=== PATIENT | female | born 1980 | race Asian ===

== ENCOUNTER 2018-01-09 13:05 | Emergency (ER) | payer BC, SELFPAY ==
--- NOTE | 2018-01-09 13:42 | ER ---
Nurse's Notes [facility] Name: Sherron Mart Age: 37 yrs Sex: Female : 1980 Arrival Date: 01/09/2018 Time: 13:09 Bed 25 Private MD: Diagnosis: Acute lymphadenitis Presentation: 01/09 13:29 Presenting complaint: Patient states: fever and neck swelling started Friday. worse ch this morning. had outpatient ct performed that showed swelling in neck. Transition of care: patient was not received from another setting of care. Onset of symptoms was January 06, 2018. Risk Assessment: Do you want to hurt yourself or someone else? Patient reports no desire to harm self or others. Initial Sepsis Screen: Does the patient meet any 2 criteria? No. Patient's initial sepsis screen is negative. Does the patient have a suspected source of infection? No. Patient's initial sepsis screen is negative. Care prior to arrival: None. 13:29 Method Of Arrival: Ambulatory 13:29 Acuity: DOMO 3 ch Triage Assessment: 13:30 General: Appears in no apparent distress. comfortable, Behavior is calm, cooperative, ch appropriate for age. Pain: Complains of pain in left ear Pain currently is 5 out of 10 on a pain scale. Pain began suddenly. EENT: Oral mucosa is moist. pt has swelling to L side of neck, does not report SOB at this time. . Neuro: No deficits noted. Respiratory: No deficits noted. GI: No signs and/or symptoms were reported involving the gastrointestinal system. Derm: No signs and/or symptoms reported regarding the dermatologic system. 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 - Social history:: Smoking status: unknown. - Family history:: not pertinent. - Ebola Screening: : Patient negative for fever greater than or equal to 101.5 degrees Fahrenheit, and additional compatible Ebola Virus Disease symptoms Patient denies exposure to infectious person Patient denies travel to an Ebola-affected area in the 21 days before illness onset No symptoms or risks identified at this time. - Hospitalizations: : No recent hospitalization is reported. Screenin:58 Abuse screen: Denies threats or abuse. Denies injuries from another. Nutritional ch screening: No deficits noted. Tuberculosis screening: No symptoms or risk factors identified. Fall Risk None identified. Assessment: 13:58 General: Appears in no apparent distress. comfortable, Behavior is calm, cooperative, ch appropriate for age. Pain: Complains of pain in left sternocleidomastoid Pain currently is 6 out of 10 on a pain scale. Pain began suddenly. Neuro: No deficits noted. Neuro: Level of Consciousness is awake, alert, obeys commands, Oriented to person, place, time, situation, Reports headache. Cardiovascular: Heart tones S1 S2 present Capillary refill < 3 seconds in bilateral fingers toes. Respiratory: No deficits noted. GI: No signs and/or symptoms were reported involving the gastrointestinal system. : No signs and/or symptoms were reported regarding the genitourinary system. EENT: PT HAS SWELLING TO L SIDE OF NECK. Derm: Skin is pink, warm \T\ dry. Vital Signs: 13:30 BP 130 / 72; Pulse 90; Resp 18; Pulse Ox 99% on R/A; Pain 4/10; ch 13:58 BP 126 / 78; Pulse 81; Resp 15; Temp 99.2; Pulse Ox 99% on R/A; Pain 4/10; ch ED Course: 13:09 Patient arrived in ED. iw 13:10 Hood Panda MD is Attending Physician. rn 13:29 Ina Baron, [place] is Primary Nurse. ch 13:30 Triage completed. ch 13:30 Arm band placed on left wrist. Patient placed in an exam room, on a stretcher. EKG ch completed in triage. Results shown to MD. 13:58 Patient has correct armband on for positive identification. Bed in low position. Call light in reach. Adult w/ patient. 13:58 No provider procedures requiring assistance completed. IV discontinued, intact, ch bleeding controlled, No redness/swelling at site. Pressure dressing applied, PT HAD 22G IV TO L WRIST FROM CT. Administered Medications: 13:55 Drug: Zofran 4 mg Route: PO; ch 14:00 Follow up: Response: No adverse reaction Outcome: 13:58 Eloped from patient exam room, after seeing physician Time discovered patient gone: January 09, 2018 at 14:01 13:58 Condition: stable 13:58 Instructed on ERP REVIEWED HE WANTED TO TRANSFER PT TO [facility] FOR AN ENT EVALUATION AND ADMISSION. PT STATED SHE DIDN'T REALLY WANT TO BE TRANSFERRED VIA EMS, SHE COULD NOT AFFORD IT. ERP REVIEWED PT NEEDED TO BE EVALUATED BY ENT 14:03 Patient left the ED. Signatures: Ina Baron RN RN Lani Aly RN RN Hood Panda MD MD rn
--- NOTE | 2018-01-09 13:42 | EDPHYS ---
Physician Documentation [facility] Name: Sherron Mart Age: 37 yrs Sex: Female : 1980 Arrival Date: 01/09/2018 Time: 13:09 Bed 25 Private MD: ED Physician Hood Panda HPI: 01/09 13:21 This 37 yrs old Female presents to ER via Unassigned with complaints of Abnormal internal medicine specialist Results, Neck Swelling. 13:21 The patient or guardian complains of pain. The symptoms are located on the left neck. rn Onset: The symptoms/episode began/occurred 4. day(s) ago. Context: The problem was sustained at an unknown location. The pain does not radiate. Modifying factors: The symptoms are alleviated by nothing. the symptoms are aggravated by movement, pressure. Severity of symptoms: At their worst the symptoms were moderate, in the emergency department the symptoms are unchanged. The patient has not experienced similar symptoms in the past. Reports swelling to left neck that began a few days ago, got on augmentin yesterday, worsened today, got CT scan of neck, sent here by radiology for evaluation. NO trouble breathing or swallowing. . 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 - Social history:: Smoking status: unknown. - Family history:: not pertinent. - Ebola Screening: : Patient negative for fever greater than or equal to 101.5 degrees Fahrenheit, and additional compatible Ebola Virus Disease symptoms Patient denies exposure to infectious person Patient denies travel to an Ebola-affected area in the 21 days before illness onset No symptoms or risks identified at this time. - Hospitalizations: : No recent hospitalization is reported. ROS: 13:21 Constitutional: + fever Eyes: Negative for injury, pain, redness, and discharge, ENT: rn Negative for injury, pain, and discharge, Neck: + neck swelling and pain Cardiovascular: Negative for chest pain, palpitations, and edema, Respiratory: Negative for shortness of breath, cough, wheezing, and pleuritic chest pain, Abdomen/GI: Negative for abdominal pain, nausea, vomiting, diarrhea, and constipation, MS/Extremity: Negative for injury and deformity, Skin: Negative for injury, rash, and discoloration, Neuro: Negative for headache, weakness, numbness, tingling, and seizure. Exam: 13:21 Constitutional: This is a well developed, well nourished patient who is awake, alert, rn and in no acute distress. Head/Face: Normocephalic, atraumatic. ENT: Nares patent. No nasal discharge, no septal abnormalities noted. Oropharynx with no redness, swelling, or masses, exudates, or evidence of obstruction, uvula midline. Mucous membranes moist. No stridor Neck: + moderate swelling and tenderness without fluctuance of left anterior/lateral neck, dunlap snot cross midline Neuro: Awake and alert, GCS 15, oriented to person, place, time, and situation. Cranial nerves II-XII grossly intact. Motor strength 5/5 in all extremities. Sensory grossly intact. Cerebellar exam normal. Normal gait. Vital Signs: 13:30 BP 130 / 72; Pulse 90; Resp 18; Pulse Ox 99% on R/A; Pain 4/10; ch 13:58 BP 126 / 78; Pulse 81; Resp 15; Temp 99.2; Pulse Ox 99% on R/A; Pain 4/10; ch MDM: 13:10 Patient medically screened. rn 13:39 Differential diagnosis: lymphadenitis. Data reviewed: vital signs, nurses notes, rn radiologic studies, CT scan, and as a result, I will admit patient. Counseling: I had a detailed discussion with the patient and/or guardian regarding: the historical points, exam findings, and any diagnostic results supporting the discharge/admit diagnosis, radiology results, the need for further work-up and treatment in the hospital, the need to transfer to another facility, [facility] does not immediately have the required specialist. ED course: Pt refuses transfer, understands my preference for admission/transfer given we dont have ENT here, patient prefers to drive herself up there and be evaluated [facility] if we can't do anything for her here, risks explained, family is planning on driving her, results given and images burned on cd. . Administered Medications: 13:55 Drug: Zofran 4 mg Route: PO; ch 14:00 Follow up: Response: No adverse reaction Disposition: 01/09/18 13:42 Patient left the facility after being seen by provider. Preliminary diagnosis is Acute lymphadenitis. - Patient left due to other. - Condition is Stable. - Problem is an ongoing problem. - Symptoms have improved. Signatures: Ina Baron RN RN Hood Panda MD MD home health rn: (The following items were deleted from the chart) 14:03 13:42 01/09/2018 13:42 Patient left the facility after being seen by provider. Preliminary diagnosis is Acute lymphadenitis. Reason stated they are leaving due to other. Condition is Stable. Problem is an ongoing problem. Symptoms have improved. rn
[2018-01-09] MEDS ORDERED: ONDANSETRON 4 MG (ODT) TAB ONE (14:00)
== END 2018-01-09 14:03 | disposition left against medical advice (07) ==
LOC: ER 13:05
DX: Z53.21 Procedure and treatment not carried out due to patient leaving prior to being seen by health care provider (principal)
CPT/HCPCS: 99283